=== PATIENT | female | born 1950 | race Two or more races ===

== ENCOUNTER 2023-03-12 19:24 | Emergency (ER) | payer OTHER ==
[~2023-03-12] VITALS: Ht 149.9 cm; Wt 77.1 kg
[~2023-03-12 19:24] MED LIST: AMBIEN PAK10 MG PO; CYMBALTA60 MG PO; HYZAAR 50-12.1 UDTAB PO; KLONOPIN0.5 MG/TAB PO; LYRICA300 MG PO; TOPROL XL25 MG PO
[2023-03-12] MEDS ORDERED: TENORMIN50 M1 PO (19:36)
[2023-03-12] MEDS ORDERED: GRALISE600 MG PO (19:36)
[2023-03-12] MEDS ORDERED: PANADOL EXTRA500 MG PO (19:37)
[2023-03-12] MEDS ORDERED: SIMVASTATIN5 MG PO (19:37)
[2023-03-12] MEDS ORDERED: SYNTHROID50 MCG PO (19:37)
[2023-03-12 22:00] LABS: HEMATOCRIT 40.5 % (36.0-45.00); HEMOGLOBIN 13.6 g/dL (12.0-15.00); MEAN CORPUSCULAR HEMOGLOBIN 28.3 pg (27.00-32.0); MEAN CORPUSCULAR HGB CONC 33.7 g/dl (32.0-36.0); PLATELET COUNT 277 K/uL (150-450); RED BLOOD COUNT 4.82 M/uL (4.00-6.00); RED CELL DISTRIBUTION WIDTH 14.5 % (11.5-14.5)
[2023-03-12 22:15] LABS: INR 0.97; PARTIAL THROMBOPLASTIN TIME 25.4 SECONDS (22.0-34.0); PROTHROMBIN TIME 10.2 SECONDS (9.0-11.5)
[2023-03-12 22:16] LABS: CALCIUM 9.5 mg/dL (8.5-10.1); CREATININE SERUM 0.87 mg/dL (0.55-1.02); GFR 64.37; POTASSIUM 3.76 mEq/L (3.5-5.1)
== END 2023-03-12 23:20 | disposition home or self-care (01) ==
LOC: ER 19:25
PROVIDERS: General Practice
DX: R51.9 Headache, unspecified (principal); Z88.6 Allergy status to analgesic agent